=== PATIENT | male | born 1990 | race Caucasian/White ===

== ENCOUNTER 2022-12-02 07:50 | Emergency (ER) | payer OTHER ==
[~2022-12-02] VITALS: Ht 165.1 cm; Wt 93.4 kg
[2022-12-02 08:03] VITALS: BP 131/80
[2022-12-02] MEDS ORDERED: PHEN-1877 PO (08:15)
[2022-12-02] MEDS ORDERED: NITR100C7 PO (08:15)
--- NOTE | 2022-12-02 08:20 | NUR ---
DR VEGA AT BEDSIDE FOR EVAL
--- NOTE | 2022-12-02 08:26 | NUR ---
32/ Y/O MALE BIB SELF C/O BURNING URINATION AND HEMATURIA X1 DAY WITH INCREASED PAIN IN THE LEFT LOWER BACK WITH URINATION. DENIES ANY RECENT INJURY. DENIES ANY MEDICATION PRIOR TO ARRIVAL.PAIN SHARP AND BURNING 5/10. DENIES ANY FEVERS, CHILLS, ABD PAIN, NAUSEA. PMH: DENIES NKA
--- NOTE | 2022-12-02 08:30 | NUR ---
Patient discharged with v/s stable. Written and verbal after care instructions ABOUT UTI given and explained. Patient alert, oriented and verbalized understanding of instructions. Ambulatory with steady gait. All questions addressed prior to discharge. ID band removed. Patient advised to follow up with PMD. Rx of MACROBUD, PYRIDIUM given. Patient educated on indication of medication including possible reaction and side effects. Opportunity to ask questions provided and answered.
[2022-12-02 08:48] LABS: APPEARANCE,URINE CLEAR (CLEAR); BILIRUBIN,URINE NEGATIVE (NEGATIVE); BLOOD, URINE 3+ (NEGATIVE); COLOR,URINE YELLOW (YELLOW); LEUKOCYTE ESTERASE ,URINE 1+ (NEGATIVE); NITRITE, URINE NEGATIVE (NEGATIVE); UGLUCOSE NEGATIVE (NEGATIVE)
[2022-12-02 09:37] LABS: RBC,URINE 20-50 /HPF (0-5)
== END 2022-12-02 08:30 | disposition home or self-care (01) ==
LOC: MED 07:50
DX: N39.0 Urinary tract infection, site not specified (principal); Z79.899 Other long term (current) drug therapy; Z79.2 Long term (current) use of antibiotics
CPT/HCPCS: 81001; 87086; 87491; 99283

== ENCOUNTER 2023-10-27 16:32 | Emergency (ER) | payer OTHER ==
[~2023-10-27] VITALS: Ht 162.6 cm; Wt 96.6 kg
[~2023-10-27 16:32] MED LIST: NITR100C7 PO; PHEN-1877 PO
[2023-10-27 16:45] VITALS: BP 148/104; PULSE 79; RESP 20; TEMP 98.7; O2SAT 97
[2023-10-27 18:12] VITALS: BP 105/71; PULSE 71; RESP 18; TEMP 98.2; O2SAT 100
[2023-10-27] MEDS ORDERED: IBUP-2213 PO (18:50)
[2023-10-27] MEDS ORDERED: CEPH-588 PO (18:50)
[2023-10-27 20:03] LABS: APPEARANCE,URINE CLEAR (CLEAR); BILIRUBIN,URINE NEGATIVE (NEGATIVE); BLOOD, URINE NEGATIVE (NEGATIVE); COLOR,URINE YELLOW (YELLOW); LEUKOCYTE ESTERASE ,URINE NEGATIVE (NEGATIVE); NITRITE, URINE NEGATIVE (NEGATIVE); PROTEIN,URINE NEGATIVE (NEGATIVE); UGLUCOSE NEGATIVE (NEGATIVE); UROBILINOGEN,URINE 0.2 EU/dL (0.2 - 1)
== END 2023-10-27 19:23 | disposition home or self-care (01) ==
LOC: MED 16:32
DX: R30.0 Dysuria (principal); Z79.1 Long term (current) use of non-steroidal anti-inflammatories (NSAID); Z79.2 Long term (current) use of antibiotics
CPT/HCPCS: 71045; 81003; 82948; 87086; 99284